=== PATIENT | female | born 1965 | race African-American/Black ===

== ENCOUNTER 2017-06-05 05:51 | Day surgery (SDC) | payer MEDICARE, MEDICAID ==
[~2017-06-05] VITALS: Ht 165.1 cm; Wt 81.6 kg
[2017-06-05 06:29] LABS: UCG SCREEN NEGATIVE
[2017-06-05 07:38] LABS: PARTIAL THROMBOPLASTIN TIME 26.1 sec (23.4-31.0); PROTHROMBIN TIME 10.7 sec (9.4-11.6)
[2017-06-05] MEDS ORDERED: SODIUM CHLORIDE 0.9% 1,000 ML IV SCH (07:40)
[2017-06-05 08:02] LABS: BASOPHILS % 0.6 % (0.0-2.0); EOSINOPHILS % 0.7 % (0.0-5.0); HEMATOCRIT. 26.8 % (36.0-48.0); HEMOGLOBIN. 8.1 g/dL (12.0-16.0); LYMPHOCYTES % 14.6 % (20.0-50.0); MEAN CORPUSCULAR HEMOGLOBIN 20.6 pg (28.0-32.0); MEAN CORPUSCULAR VOLUME 68.2 fL (81.0-99.0); MEAN PLATELET VOLUME 7.9 fl (7.4-10.4); MONOCYTES % 9.6 % (2.0-8.0); NEUTROPHILS % 74.5 % (40.0-76.0); PLATELET 431 x1000/uL (130-400); RED BLOOD CELL COUNT 3.94 mill/uL (4.2-5.4); RED CELL DISTRIBUTION WIDTH 19.2 % (11.6-14.6)
[2017-06-05] MEDS ORDERED: BACITRACIN ZINC 15GM TUBE TOP ONE (08:18)
[2017-06-05] MEDS ORDERED: BUPIVACAINE HCL/PF 0.5% (5MG/ML) 10ML ONE (08:18)
[2017-06-05] MEDS ORDERED: NORMAL SALINE 0.9% 10 ML SYR ONE (08:18)
[2017-06-05] MEDS ORDERED: SKIN ADHESIVE 0.7 GM EA TOP ONE (08:18)
[2017-06-05] MEDS ORDERED: LIDOCAINE HCL 1% 20ML VIAL (Pyxis) INJ ONE ×2 (08:19→08:43)
[2017-06-05] MEDS ORDERED: BACITRACIN 50,000 UNITS/VIAL ONE (08:19)
[2017-06-05] MEDS ORDERED: ALBUTEROL 90MCG/PUFF 17GM INHALER INH ONE (08:41)
[2017-06-05] MEDS ORDERED: FENTANYL CITRATE/PF 50MCG/ML 5ML VIAL ONE (08:41)
[2017-06-05] MEDS ORDERED: ONDANSETRON HCL 4MG/2ML VIAL ONE (08:43)
[2017-06-05] MEDS ORDERED: METOCLOPRAMIDE HCL 10MG/2ML VIAL ONE (08:43)
[2017-06-05] MEDS ORDERED: ROCURONIUM BROMIDE 10MG/ML VIAL 5ML IV ONE (08:43)
[2017-06-05] MEDS ORDERED: MIDAZOLAM HCL 2 MG/2 ML VIAL ONE (08:44)
[2017-06-05] MEDS ORDERED: CEFAZOLIN SODIUM 1000MG/VIAL ONE (08:45)
[2017-06-05 08:46] LABS: PLATELET ESTIMATE SLIGHTLY INCREASED
[2017-06-05] MEDS ORDERED: ESMOLOL HCL 10MG/ML 10ML VIAL IV ONE (09:23)
[2017-06-05] MEDS ORDERED: GLYCOPYRROLATE 0.2 MG/ML 2ML VIAL ONE (10:06)
[2017-06-05] MEDS ORDERED: NEOSTIGMINE METHYLSULFATE 1MG/ML 10 ML VIAL ONE (10:06)
[2017-06-05] MEDS ORDERED: PHENYLEPHRINE HCL 10 MG/ML 1ML (IV VIAL) IV ONE (10:06)
[2017-06-05] MEDS ORDERED: LEVO88TA7 PO (11:29)
[2017-06-05] MEDS ORDERED: METF10002 PO (11:29)
[2017-06-05] MEDS ORDERED: CHOL20004 PO (11:29)
[2017-06-05] MEDS ORDERED: ALBU18HF2 IH (11:29)
[2017-06-05] MEDS ORDERED: FERR-63 PO (11:29)
[2017-06-05] MEDS ORDERED: KETOROLAC 30MG/ML VIAL IV NR (11:40)
[2017-06-05] MEDS ORDERED: MORPHINE SULFATE 4 MG/ML CPJ (NOT FOR IM USE) IV PRN (11:41)
[2017-06-05 11:50] VITALS: BP 130/77
[2017-06-05] MEDS ORDERED: HYDROMORPHONE HCL/PF 2MG/ML CPJ IV PRN (12:30)
[2017-06-05] MEDS ORDERED: ONDANSETRON HCL 4MG/2ML VIAL IV NR (12:30)
== END 2017-06-05 14:55 | disposition home or self-care (01) ==
LOC: OR 05:51
PROVIDERS: ATTEND Specialist
DX: K43.6 Other and unspecified ventral hernia with obstruction, without gangrene (principal); I10 Essential (primary) hypertension; F32.9 Major depressive disorder, single episode, unspecified; E11.9 Type 2 diabetes mellitus without complications; Z53.31 Laparoscopic surgical procedure converted to open procedure; Z98.890 Other specified postprocedural states; K64.9 Unspecified hemorrhoids; J45.909 Unspecified asthma, uncomplicated; E03.9 Hypothyroidism, unspecified; K66.0 Peritoneal adhesions (postprocedural) (postinfection)
CPT/HCPCS: 36415; 49329; 49561; 49568; 73706; 81025; 82962; 85025; 85610; 85730; 86850; 86900; 86901; A4216; G0168; J0690; J1885; J2250; J2270; J2370; J2405; J2710; J2765; J3010; J3490; J7030

== ENCOUNTER → 2018-02-04 | Outpatient (CLI) | payer MEDICARE, MEDICAID ==
[~2018-02-04] MED LIST: ALBU18HF2 IH; BARIUM SULFATE(VOLUMEN) 450 ML ORAL.SUSP ONE; CHOL20004 PO; FERR-63 PO; IOHEXOL-350 100 ML BOTTLE ONE; LEVO88TA7 PO; METF10002 PO
== END | disposition home or self-care (01) ==
LOC: CT 08:43
PROVIDERS: ATTEND Internal Medicine Gastroenterology
DX: K42.9 Umbilical hernia without obstruction or gangrene (principal); D64.9 Anemia, unspecified; D25.9 Leiomyoma of uterus, unspecified
CPT/HCPCS: 74177; Q9967